=== PATIENT | male | born 2000 | race Caucasian/White ===

== ENCOUNTER → 2021-05-28 | Outpatient (CLI) | payer SELFPAY | LOC: LAB 14:38 | PROVIDERS: ATTEND Internal Medicine Pulmonary Disease | DX: U07.1 COVID-19 (principal); R19.7 Diarrhea, unspecified; M79.10 Myalgia, unspecified site; R53.81 Other malaise; R68.83 Chills (without fever); R51.9 Headache, unspecified | CPT/HCPCS: U0003; U0005 ==